=== PATIENT | female | born 1960 | race Hispanic/Latino ===

== ENCOUNTER → 2023-06-24 10:31 | Outpatient (REF) | payer OTHER, SELFPAY ==
[2023-06-24 11:11] LABS: Hematocrit 39.1 % (37.0-47.0); Hemoglobin 13.5 g/dL (12.0-16.0); Mean Corp Hgb Conc. 34.5 g/dL (33.0-37.0); Mean Corpuscular Hgb 29.2 pg (27.0-31.0); Mean Corpuscular Volume 84.6 fL (81.0-99.0); Mean Platelet Volume 10.5 fL (7.4-10.4); Platelet Count 207 10^3/uL (130-400); Red Blood Cell Count 4.62 10^6/uL (4.20-5.40); Red Cell Dist. Width 13.2 % (11.5-14.5); White Blood Cell Count 3.3 10^3/uL (4.8-10.8)
[2023-06-24 11:38] LABS: Glycohemoglobin (HgbA1c) 6.1 % (4.0-5.6)
[2023-06-24 12:32] LABS: ALT (SGPT) 26 U/L (0-35); AST (SGOT) 31 U/L (14-36); Albumin 3.9 g/dl (3.5-5.0); Alkaline Phosphatase 83 U/L (38-126); Blood Urea Nitrogen 11 mg/dl (7-17); Calcium 9.2 mg/dl (8.4-10.2); Carbon Dioxide 28 mmol/L (22-30); Chloride 104 mmol/L (98-107); Glucose 113 mg/dl (70-99); Potassium 4.2 mmol/L (3.5-5.1); Sodium 140 mmol/L (135-145); Total Bilirubin 0.7 mg/dl (0.2-1.3); Total Protein 6.5 g/dl (6.3-8.2); eGFR > 60.00
== END ==
LOC: CLINIC 10:31
PROVIDERS: ATTENDING PHYSICIAN Nurse Practitioner Adult Health
DX: K21.9 Gastro-esophageal reflux disease without esophagitis (principal); Z86.39 Personal history of other endocrine, nutritional and metabolic disease; Z00.00 Encounter for general adult medical examination without abnormal findings
CPT/HCPCS: 36415; 80053; 83036; 84443; 85027

== ENCOUNTER → 2023-08-14 12:12 | Outpatient (REF) | payer OTHER, SELFPAY ==
[2023-08-14 12:53] LABS: % Basophils 1.5 % (0-2); % Eosinophils 3.3 % (0-6); % Immature Granulocytes 0.3 % (0-0.5); % Lymphocytes 42.1 % (20.5-51.1); % Neutrophils 43.8 % (42.2-75.2); Absolute Basophils 0.1 10^3/uL (0-0.2); Absolute Eosinophils 0.1 10^3/uL (0-0.7); Absolute Lymphocytes 1.6 10^3/uL (1.2-3.4); Absolute Monocytes 0.4 10^3/uL (0.1-0.6); Absolute Neutrophils 1.7 10^3/uL (1.4-6.5); Hematocrit 38.8 % (37.0-47.0); Hemoglobin 12.9 g/dL (12.0-16.0); Mean Corp Hgb Conc. 33.2 g/dL (33.0-37.0); Mean Corpuscular Hgb 29.8 pg (27.0-31.0); Mean Corpuscular Volume 89.6 fL (81.0-99.0); Mean Platelet Volume 10.7 fL (7.4-10.4); Nucleated Red Blood Cells % 0 %; Platelet Count 186 10^3/uL (130-400); Red Blood Cell Count 4.33 10^6/uL (4.20-5.40); Red Cell Dist. Width 13.2 % (11.5-14.5); White Blood Cell Count 3.9 10^3/uL (4.8-10.8)
[2023-08-14 13:07] LABS: Erythrocyte Sed Rate 21 mm/hour (0-20)
[2023-08-14 13:25] LABS: Amylase 65 U/L (30-110); Lipase 127 U/L (23-300)
== END ==
LOC: CLINIC 12:12
PROVIDERS: ATTENDING PHYSICIAN Internal Medicine
DX: R10.33 Periumbilical pain (principal)
CPT/HCPCS: 36415; 82150; 83690; 85025; 85652

== ENCOUNTER → 2023-08-19 11:27 | Outpatient (REF) | payer OTHER, SELFPAY | LOC: CLINIC 11:27 | PROVIDERS: ATTENDING PHYSICIAN Internal Medicine; FAMILY PHYSICIAN Nurse Practitioner Adult Health | DX: R10.33 Periumbilical pain (principal) | CPT/HCPCS: 74178; Q9967 ==

== ENCOUNTER 2023-10-27 13:57 | Emergency (ER) | payer SELFPAY ==
[2023-10-27 14:04] VITALS: BP 148/67
[2023-10-27 14:29] LABS: % Basophils 1.2 % (0-2); % Immature Granulocytes 0.6 % (0-0.5); % Lymphocytes 24.4 % (20.5-51.1); % Monocytes 4.1 % (1.7-9.3); % Neutrophils 68.7 % (42.2-75.2); Absolute Basophils 0.1 10^3/uL (0-0.2); Absolute Eosinophils 0.1 10^3/uL (0-0.7); Absolute Lymphocytes 1.2 10^3/uL (1.2-3.4); Absolute Monocytes 0.2 10^3/uL (0.1-0.6); Absolute Neutrophils 3.4 10^3/uL (1.4-6.5); Hematocrit 37.3 % (37.0-47.0); Hemoglobin 12.8 g/dL (12.0-16.0); Mean Corp Hgb Conc. 34.3 g/dL (33.0-37.0); Mean Corpuscular Hgb 29.6 pg (27.0-31.0); Mean Corpuscular Volume 86.3 fL (81.0-99.0); Mean Platelet Volume 10.6 fL (7.4-10.4); Nucleated Red Blood Cells % 0 %; Platelet Count 204 10^3/uL (130-400); Red Blood Cell Count 4.32 10^6/uL (4.20-5.40); Red Cell Dist. Width 13.4 % (11.5-14.5); White Blood Cell Count 4.9 10^3/uL (4.8-10.8)
[2023-10-27 14:45] LABS: ALT (SGPT) 27 U/L (0-35); AST (SGOT) 26 U/L (14-36); Albumin 4.4 g/dl (3.5-5.0); Alkaline Phosphatase 77 U/L (38-126); Blood Urea Nitrogen 15 mg/dl (7-17); Calcium 9.1 mg/dl (8.4-10.2); Carbon Dioxide 22 mmol/L (22-30); Chloride 109 mmol/L (98-107); Glucose 125 mg/dl (70-99); Lipase 97 U/L (23-300); Potassium 4.2 mmol/L (3.5-5.1); Sodium 140 mmol/L (135-145); Total Bilirubin 0.7 mg/dl (0.2-1.3); Total Protein 6.8 g/dl (6.3-8.2); eGFR > 60.00
[2023-10-27 16:11] VITALS: BMI 37.5
[2023-10-27 16:20] VITALS: BP 139/59
--- NOTE | 2023-10-27 16:22 | ED.GENMED ---
History of Present Illness
General
Chief Complaint: Back Pain
Source: patient
Exam Limitations: none
Time Seen by Provider: 10/27/23 16:11
Nursing documentation reviewed up to this point in time: agreed with
History of Present Illness
History of Present Illness:
Patient to ED with complaint of mid back pain, SOB. Symptoms started approx 3 weeks ago. Denies fever/chills, n/v/d. No history of trauma. No prior history of same. Brought to ED by family for eval.
Past History
Past History
ED Past Medical History: Other (Kidney stones)
ED Past Surgical History: Cholecystectomy and Gynecological
Social History
Tobacco: Non-smoker
Alcohol: Occasional
Drug: None
Review of Systems
Review of Systems
Allergies reviewed?: Yes
All Other Systems: ROS reviewed and negative except as documented in HPI and ROS
Constitutional: Reports no symptoms
EENT: Reports no symptoms
Respiratory: Reports no symptoms
Cardiac: Reports no symptoms
ABD/GI: Reports no symptoms
Musculoskeletal: Reports back pain
Skin: Reports no symptoms
Neurological: Reports no symptoms
Psychiatric: Reports no symptoms
Phy Exam
General Physical Exam
General Presentation: well appearing
General age: appears stated age
General Skin: warm and dry
General Habitus: normal
General Mental: alert
General Hydration: appears well hydrated
Cardiovascular Exam
Cardiovascular Exam: regular rate/rhythm and no edema
Pulmonary Exam
Pulmonary Exam: lungs clear and no respiratory distress
Gastrointestinal Exam
Gastrointestinal Exam: normal bowel sounds, non tender, soft and no organomegaly
Musculoskeletal Exam
Musculoskeletal Exam: full ROM
Skin Exam
Skin Exam: normal color, warm/dry and no rash
Psychiatric Exam
Psychiatric Exam: normal mood/affect
Course
Orders/Labs/Results
Orders:
Orders
10/27/23 13:59
Electrocardiogram (*1) Urgent
Reason for Study: Shortness of Breath
EKG- Treatment ONCE
10/27/23 14:22
Complete Blood Count/With Diff Urgent
Comprehensive Metabolic Panel Urgent
Lipase Urgent
10/27/23 16:21
Ketorolac [Toradol] 15 mg IV NOW STA
CR Chest - 2 Views Urgent
Comment:
Reason For Exam: pain
CR Thoracic Spine 3 Views Urgent
Comment:
Reason For Exam: pain
10/27/23 16:22
Electrocardiogram (*1) Urgent
Reason for Study: Shortness of Breath
10/27/23 17:17
CT Abd/pelvis W Iv Cont Urgent
Comment:
Reason For Exam: pain, vomiting
10/27/23 17:23
Urinalysis Reflex To Culture Urgent
Date Specimen was Collected: 10/27/23
Time Specimen was Collected: 17:17
Abnormal Lab Results
10/27/23
14:22
MPV 10.6 H fL
(7.4-10.4)
Immature Gran % 0.6 H %
(0-0.5)
Chloride 109 H mmol/L
(98-107)
Creatinine 0.5 L mg/dL
(0.6-1.0)
Glucose 125 H mg/dl
(70-99)
10/27/23 14:22
10/27/23 14:22
Vital Signs
Initial and Last Documented VS:
Initial Vital Signs
Temp Pulse Resp BP Pulse Ox
98.0 F 63 16 148/67 98
10/27/23 14:04 10/27/23 14:04 10/27/23 14:04 10/27/23 14:04 10/27/23 14:04
Last Documented Vital Signs
Temp Pulse Resp BP Pulse Ox
98.0 F 53 18 139/59 98
10/27/23 14:04 10/27/23 17:25 10/27/23 17:25 10/27/23 16:20 10/27/23 17:25
*Radiology
Radiology exam reviewed: radiology read reviewed
*Pulse Oximetry
Patient hypoxic: no
*Critical Care Note
Total Time (30-74mins, 75-104mins- exclusive of procedures): Not Applicable
ED Attending Note
-
Portions of this chart may have been created with voice recognition software.� Occasional wrong word or��sound alike� substitutions may have occurred due to the inherent limitations of voice recognition software.
Discharge Plan
Departure
Patient Disposition: Home (Routine Discharge)
Date of Disposition: 10/27/23
Time of Disposition: 18:05
Patient with high blood pressure during this ER visit?: No
Condition: Good
Covid-19: Not Applicable
Discharge Problem:
Back pain
Instructions: Upper Back Pain (DC), Ibuprofen, Using Cold for Pain
Prescriptions:
New
ibuprofen 600 mg tablet
600 mg PO Q6H PRN (Reason: Pain) Qty: 20 0RF
cyclobenzaprine 10 mg tablet
10 mg PO HS PRN (Reason: muscle spasms) Qty: 7 0RF
Referrals:
[facility] [Outside[facility] - Next open appointment
UNKNOWN - PT DOES,NOT KNOW [Family Provider] -
Interventions
Interventions:
*Risk Screen - Suicide Last Done: 10/27/23 16:11
*General Assessment Last Done: 10/27/23 16:11
*Neglect/Abuse Screening Last Done: 10/27/23 16:11
ED- Fall Risk Assessment Last Done: 10/27/23 16:11
*ED COVID-19 Vaccine History Last Done: 10/27/23 14:04
*Nursing Disposition Last Done: 10/27/23 18:14
ED-Musculoskeletal Assessment Last Done: 10/27/23 16:11
Discharge Date and Time
Discharge Date/Time: 10/27/23 18:14
Print Language: CYMRAES
Musculoskeletal Injury Exam
Musculoskeletal Injury Exam
Bilateral Middle Back:
Pain with Movement?: Moderate
Tender to palpation?: Moderate
Soft tissue swelling?: None
External deformity and angulation?: None
Joint effusion?: None
Contusion?: None
Hematoma-local bleeding into tissue?: None
Crepitus with movement?: No
Joint instability?: No
Malalignment/deformity?: No
Range of motion: Full
Distal skin color and temperature: normal-warm & good color
Capillary Refill: normal
Normal distal neurovascular exam?: Yes
[2023-10-27] MEDS: TORADOL 15 MG IV (16:36)
[2023-10-27 17:30] LABS: Urine Albumin Negative (Neg - Trace); Urine Bilirubin Negative (Negative); Urine Character Clear (Clear); Urine Color Yellow; Urine Glucose Negative (Negative); Urine Ketone Negative (Negative); Urine Leukocyte Negative (Negative); Urine Nitrite Negative (Negative); Urine Occult Blood Negative (Negative); Urine Urobilinogen Negative (Neg - 1+); Urine pH 6.5 (5.0-9.0)
== END 2023-10-27 18:14 | disposition home or self-care (01) ==
LOC: EMR 13:57
PROVIDERS: Emergency Medicine; Nurse Practitioner; EMERGENCY PHYSICIAN Emergency Medicine
DX: M54.9 Dorsalgia, unspecified (principal); R06.02 Shortness of breath
CPT/HCPCS: 99284; 96374; 71046; 72072; 74177; 80053; 81003; 83690; 85025; 93005; Q9967

== ENCOUNTER → 2023-12-10 12:03 | Outpatient (REF) | payer OTHER, SELFPAY ==
[2023-12-10 14:24] LABS: Glycohemoglobin (HgbA1c) 5.6 % (4.0-5.6)
[2023-12-10 14:39] LABS: ALT (SGPT) 42 U/L (0-35); AST (SGOT) 44 U/L (14-36); Albumin 4.3 g/dl (3.5-5.0); Alkaline Phosphatase 91 U/L (38-126); Blood Urea Nitrogen 12 mg/dl (7-17); Calcium 9.1 mg/dl (8.4-10.2); Carbon Dioxide 23 mmol/L (22-30); Chloride 108 mmol/L (98-107); Glucose 106 mg/dl (70-99); Potassium 4.2 mmol/L (3.5-5.1); Sodium 139 mmol/L (135-145); Total Bilirubin 0.7 mg/dl (0.2-1.3); Total Protein 6.7 g/dl (6.3-8.2); eGFR > 60.00
== END ==
LOC: REG 12:03
PROVIDERS: ATTENDING PHYSICIAN Nurse Practitioner Adult Health
DX: R73.03 Prediabetes (principal)
CPT/HCPCS: 36415; 80048; 80053; 83036

== ENCOUNTER 2023-12-22 06:36 | Day surgery (SDC) | payer OTHER, SELFPAY ==
[2023-12-22] VITALS (10 sets, daily range): BP systolic 99–151; BP diastolic 53–71; BMI 31.7
[2023-12-22] MEDS: TYLENOL 1000 MG PO (08:42)
[2023-12-22] MEDS: NORMOSOL-R 1000 IV (08:55)
[2023-12-22 08:59] LABS: Glucose - Point of Care 115 mg/dl (70-99)
--- NOTE | 2023-12-22 11:26 | W.IMMPOSTOP ---
Surgical Immed Post Op Note
-
Primary Surgeon: Raina
Assisting: CAMILO Braxton
Pre-op Diagnosis: Umbilical hernia
Post-op Diagnosis: Incarcerated umbilical and ventral incisional hernias
Procedure Performed: Robot assisted laparoscopic repair of incarcerated ventral incisional hernia and incarcerated umbilical hernia (rTAPP)
Anesthesia Type: GETA + TAP block
Specimen / Cultures: None
Estimated Blood Loss: 5cc
Complications: None immediate
Operative Findings: Incarcerated ventral incisional hernia at umbilical port site, adjacent incarcerated umbilical hernia with intervening fascial bridge, total hernia size 3.2cm x 2cm; 13cm x 13cm bard soft mesh
--- NOTE | 2023-12-22 11:28 | OR.RPT ---
Operative Report
Operative Report
Primary Surgeon: Raina
Assisting: CAMILO Braxton
Pre-op Diagnosis: Umbilical hernia
Post-op Diagnosis: Incarcerated umbilical and ventral incisional hernias
Procedure Performed: Robot assisted laparoscopic repair of incarcerated ventral incisional hernia and incarcerated umbilical hernia (rTAPP)
Anesthesia Type: GETA + TAP block
Specimen / Cultures: None
Estimated Blood Loss: 5cc
Complications: None immediate
Operative Findings: Incarcerated ventral incisional hernia at umbilical port site, adjacent incarcerated umbilical hernia with intervening fascial bridge, total hernia size 3.2cm x 2cm; 13cm x 13cm bard soft mesh
Date of surgery: 12/22/23
Indications:� This 63F developed a symptomatic incarcerated umbilical hernia. A nearby port site scar from prior cholecystectomy is noted, thought to potentially be involved. Robot assisted laparoscopic repair was planned.
Description of procedure:� The patient was taken to the operating room and positioned into supine position. The patient�s abdomen was prepped and draped in standard sterile fashion. A time-out was completed verifying correct patient, procedure,
site, positioning, and implants and special equipment prior to beginning this procedure.� The hernia was partially manually reduced after induction. A stab incision was made in the left upper quadrant, a Veress needle was inserted and proper
position was confirmed by aspiration and saline drop test. Following this, pneumoperitoneum was created with insufflation of carbon dioxide to 12 mmHg. Then a 8mm robotic trocar was inserted at the left anterior axillary line at the level of the
umbilicus. We encountered fat and did not visualize the insufflated cavity well. An additional 8mm trocar was placed in the right upper quadrant. The laparoscope was inserted and no injuries were identified in the area. Under direct visualization,
the initial trocar was exposed and two 8mm trocars were placed a hand's breadth above and below the initial trocar under direct visualization.
Attention was turned to the umbilicus and old port site area. The peritoneum was incised several cm superior to the defect and a peritoneal flap was developed in transverse and caudad directions using blunt and sharp dissection and judicious
electrocautery. The defects were identified and measured as above. Incarcerated fatty contents were reduced. The defects were closed with 0 PDS stratafix suture. A 13cm x 13cm bard soft mesh was passed into the abdomen. It was placed against the
underside of the abdominal wall and secured in place with 2-0 vicryl sutures at all four corners and prison along each side. The flap was closed over the mesh and secured with 2-0 monocryl stratafix suture. A large rent was noted at the left upper
quadrant, this was repaired using a pedicled falciform flap, secured to the abdominal wall circumferentially with 2-0 PDS stratafix suture. At the right upper quadrant a small rent was noted, this was repaired with a free flap of falciform tissue
secured to the abdominal wall circumferentially with 2-0 vicryl suture. A 14g angiocath was used to decompress the preperitoneal space. After closure of one flap defects under the defect, the flap sealed and suctioned nicely up to the abdominal
wall. The mesh did not fold nor curl. A transversus abdominis plane block was then performed under laparoscopic vision with marcaine/decadron.
After ensuring adequate hemostasis, the trocars were removed and the pneumoperitoneum allowed to escape. The trocar incisions were closed at the skin level using 4-0 monocryl and topical skin adhesive. All counts were correct and the patient
tolerated the procedure well and was taken to the postanesthesia care unit in stable condition.
The assistance of Rola LUCAS was required due to the complexity of the procedure. During the procedure she assisted with retraction, resection, and closure of the wound.
[2023-12-22] MEDS: SUBLIMAZE 25 MCG IV ×2 (12:23→12:33)
[2023-12-22 12:33] LABS: Glucose - Point of Care 150 mg/dl (70-99)
[2023-12-22] MEDS: ROXICODONE 5 MG PO (14:01)
== END 2023-12-22 14:24 | disposition home or self-care (01) ==
LOC: SDS 06:36
PROVIDERS: ATTENDING PHYSICIAN Surgery
DX: K42.0 Umbilical hernia with obstruction, without gangrene (principal); K43.0 Incisional hernia with obstruction, without gangrene
CPT/HCPCS: 49594; 82962; C1781